=== PATIENT | female | born 1980 | race Caucasian/White ===

== ENCOUNTER 2022-09-11 15:07 | Emergency (ER) | payer OTHER ==
[2022-09-11] MEDS ORDERED: HYDROcodone/Acetaminophen 5/325 mg Tablet ONE (17:28)
== END 2022-09-11 17:10 | disposition home or self-care (01) ==
LOC: CSHERS 15:07
DX: H66.001 Acute suppurative otitis media without spontaneous rupture of ear drum, right ear (principal); H73.91 Unspecified disorder of tympanic membrane, right ear; F17.210 Nicotine dependence, cigarettes, uncomplicated
CPT/HCPCS: 99282